=== PATIENT | male | born 1975 | race Hispanic/Latino ===

== ENCOUNTER 2020-08-14 11:59 | Emergency (ER) | payer SELFPAY ==
[2020-08-14] MEDS ORDERED: diphenhydrAMINE 25 MG/10 ML ORAL LIQUID PO ONE (12:28)
--- NOTE | 2020-08-14 12:28 | Emergency Department Report ---
ED General Adult HPI - General Chief complaint: Anxiety Stated complaint: SEEING IMAGES ON CELLPHONE PUI?: No Time Seen by Provider: 08/14/20 12:17 Source: patient, EMS ( EMS documentation not available at time of chart d ictation ), RN notes reviewed Mode of arrival: Stretcher Limitations: No Limitations - History of Present Illness Initial comments: The patient was evaluated in the emergency department for symptoms described in the history of present illness. He/she was evaluated in the context of the global COVID-19 pandemic, which necessitated consideration that the patient might be at risk for infection with the virus that causes COVID-19. Institutional protocols and algorithms that pertain to the evaluation of pat ients at risk for COVID-19 are in a state of rapid change based on information released by regulatory bodies including the CDC and federal and state organizations. These policies and algorithms were followed during the patient's care in the emergency department. Please note that these policies, procedures and recommendations changed on a rapid basis. Mr. Sol is a pleasant 44-year-old gentleman. He does not have a local primary care doctor, and he denies chronic medical conditions, with the exception of possible anxiety. He does not take any chronic medications. He presents to the ER today with a complaint of anxiety. He reports that he has been taking pictures at home on his personal cell phone and on his pictures, seeing strange looking shadows in the mirror. He has used multiple filters. He states that these bizarre shapes in his meter are anxiety provoking. However, he states that he is not homicidal, not suicidal, he does not want to overdose on anything, he does not have access to guns or to firearms, he is not experiencing audio hallucinations or visual hallucinations, and he simply feels very anxious. He states he would be "okay" with receiving something orally for his sensation of anxiety. He does not want to speak to a psychiatrist or therapist at this time. He denies physical pain, cough, loss of taste, loss of smell, and alcohol consumption. He denies intentional overdose. -: hour(s) Consistency: constant Improves with: none Worsens with: none Associated Symptoms: denies other symptoms - Related Data Allergies Allergy/AdvReac Type Severity Reaction Status Date / Time No Known Allergies Allergy Unverified 08/14/20 13:25 ED Review of Systems ROS: Stated complaint: SEEING IMAGES ON CELLPHONE Other details as noted in HPI Comment: All other systems reviewed and negative Psychiatric: anxiety ED Physical Exam - General Limitations: No Limitations General appearance: alert, anxious - Head Head exam: Present: atraumatic, normocephalic - Eye Eye exam: Present: normal appearance, EOMI, other (Visual acuity intact to finger counting, color perception, reading at a close distance). Absent: nystagmus - ENT ENT exam: Present: normal exam, normal orophraynx, mucous membranes moist, normal external ear exam - Neck Neck exam: Present: normal inspection, full ROM. Absent: tenderness, meningismus - Respiratory Respiratory exam: Present: normal lung sounds bilaterally. Absent: respiratory distress, wheezes, rales, rhonchi, stridor, decreased breath sounds - Cardiovascular Cardiovascular Exam: Present: normal rhythm, tachycardia, normal heart sounds. Absent: systolic murmur, diastolic murmur, rubs, gallop - GI/Abdominal GI/Abdominal exam: Present: soft. Absent: distended, tenderness, guarding, rebound, rigid, pulsatile mass - Rectal Rectal exam: Present: deferred - Extremities Exam Extremities exam: Present: normal inspection, full ROM, other (2+ pulses noted in the bilateral upper and lower extremities. There is no palpable cord. negative Homans sign. Muscular compartments are soft. The pelvis is stable.). Absent: pedal edema, calf tenderness - Back Exam Back exam: Present: normal inspection, full ROM. Absent: tenderness, CVA tenderness (R), CVA tenderness (L), paraspinal tenderness, vertebral tenderness - Neurological Exam Neurological exam: Present: alert, oriented X3, normal gait, other (No facial droop. Tongue midline. Extraocular movements intact bilaterally. Facial sensation intact to light touch in V1, V2, V3 distribution bilaterally. 5 and a 5 strength in 4 extremities. Sensation intact to light touch in 4 extremiti es.). Absent: motor sensory deficit - Psychiatric Psychiatric exam: Present: anxious. Absent: homicidal ideation, suicidal ideation - Skin Skin exam: Present: warm, dry, intact, normal color. Absent: rash ED Course Vital Signs 08/14/20 12:54 Temperature 98.4 F Pulse Rate 113 H Respiratory 18 Rate Blood Pressure 152/105 [Left] Blood Pressure 150/105 [Right] O2 Sat by Pulse 97 Oximetry ED Medical Decision Making - Lab Data Vital Signs 08/14/20 12:54 Temperature 98.4 F Pulse Rate 113 H Respiratory 18 Rate Blood Pressure 152/105 [Left] Blood Pressure 150/105 [Right] O2 Sat by Pulse 97 Oximetry - Medical Decision Making Differential diagnosis, including but not limited to: Anxiety, general medical exam Assessment and plan: 44-year-old gentleman with a complaint of painless anxiety. He has shown me pictures on his cell phone, which show discoloration on a mirror/strange shapes on a mirror. He has taken multiple pictures with multiple filters. He is alert and oriented to name, place, location, month and year. He is not homicidal suicidal, he is anxious, but demonstrates a rational and lucid thought process, and has not articulated any concerns or complaints that would require 1013 or involuntary hold. He specifically denies overdosing. He also indicates that he is not really interested in speaking to a psychiatrist or therapist at this time. Elevated blood pressure likely secondary to anxiety. Does not require emergent intervention at this time. Please reference the [employer] clinical policy on asymptomatic elevated blood pressure. Mildly tachycardic, heart rate approximately 105 bpm at this time, likely secondary to anxiety. Do not see indication for laboratory studies or radiographic studies at this time. Patient will be provided with outpatient resources. Critical care attestation.: If time is entered above; I have spent that time in minutes in the direct care of this critically ill patient, excluding procedure time. ED Disposition Clinical Impression: General medical exam, Elevated blood pressure reading, Anxiety Disposition: [id number] TO HOME OR SELFCARE Is pt being admited?: No Does the pt Need Aspirin: No Condition: Stable Additional Instructions: Please follow-up with a primary care doctor or therapist within the next week. Please minimize and avoid consumption of alcohol, tobacco. Please return to the emergency room right away with new pain, worsened pain, migration of pain, projectile vomiting, change in mental status, confusion, homicidality, suicidality, or any new, worsened or different symptoms not present on the initial emergency room evaluation. Please follow-up with your primary care doctor for elevated blood pressure within the next month. Avoid consumption of caffeine, energy drinks, stimulants. Referrals: [facility] [Provider Group] - 3-5 Days [facility] [Outside] - 3-5 Days
[2020-08-14 12:56] VITALS: BP 152/105
== END 2020-08-14 13:15 | disposition home or self-care (01) ==
LOC: ED 11:59
DX: R03.0 Elevated blood-pressure reading, without diagnosis of hypertension (principal); F41.9 Anxiety disorder, unspecified; Z00.00 Encounter for general adult medical examination without abnormal findings
CPT/HCPCS: 99283